=== PATIENT | female | born 1990 | race Caucasian/White ===

== ENCOUNTER 2018-06-15 16:40 | Emergency (ER) | payer BC ==
[2018-06-15 17:06] VITALS: BP 148/78
--- NOTE | 2018-06-15 17:16 | UC ---
- HPI Summary HPI Summary: Pt presents with c/o tender mass/lumps in right upper anterior near axilla. Pt has previous hx of similar c/o that resolved without treatment. Pt LMP was 1 week ago. Pt denies risk of . Denies FMH of breast cancer - History of Current Complaint Breast Chief Complaint: Pain, Right, Palpable Lump Onset/Duration: Started Days Ago, Still Present Timing: Constant Breast Pain Radiates To: Right Breast Pain Aggravating Factors: Palpation Breast Pain Alleviating Factors: Other: - postion Breast Associated Signs/Symptoms: Negative - Allergy/Home Medications Allergies/Adverse Reactions: Allergies Allergy/AdvReac Type Severity Reaction Status Date / Time amoxicillin [From Augmentin] Allergy Rash Verified 06/15/18 17:03 clavulanic acid Allergy Rash Verified 06/15/18 17:02 [From Augmentin] Home Medications: Home Medications Control Pill 1 tab PO DAILY 06/15/18 [History] Ibuprofen TAB* [Advil TAB*] 400 mg PO Q6H PRN 06/15/18 [History Confirmed ] PMH/Surg Hx/FS Hx/Imm Hx Previously Healthy: Yes - Surgical History Surgical History: None - Family History Known Family History: Positive: Cardiac Disease - Social History Occupation: Employed Full-time Lives: With Family Alcohol Use: None Substance Use Type: None Smoking Status (MU): Never Smoked Tobacco Have You Smoked in the Last Year: No - Immunization History Vaccination Up to Date: Yes Review of Systems All Other Systems Reviewed And Are Negative: Yes Constitutional: Positive: Negative Skin: Positive: Negative Eyes: Positive: Negative ENT: Positive: Negative Respiratory: Positive: Negative Cardiovascular: Positive: Negative Gastrointestinal: Positive: Negative Genitourinary: Positive: Negative Motor: Positive: Negative Neurovascular: Positive: Negative Musculoskeletal: Positive: Negative Neurological: Positive: Negative Psychological: Positive: Negative Is Patient Immunocompromised?: No Physical Exam Triage Information Reviewed: Yes Appearance: Well-Appearing Vital Signs: Initial Vital Signs Temp 97.8 F 06/15/18 16:59 Pulse 94 06/15/18 16:59 Resp 16 06/15/18 16:59 BP 148/78 06/15/18 16:59 Pulse Ox 100 06/15/18 16:59 Vital Signs Reviewed: Yes Eye Exam: Normal ENT Exam: Normal Dental Exam: Normal Neck exam: Normal Respiratory Exam: Normal Cardiovascular Exam: Normal Cardiovascular: Positive: Other: - Breast exam. Pt had fibrodense breast. No palpable mass indentified offer than fibrodensity. No axilla masses, no nipple discharge. Musculoskeletal Exam: Normal Neurological Exam: Normal Psychological Exam: Normal Skin Exam: Normal Breast Pain Course/Dx - Differential Diagnoses Differential Diagnosis/HQI/PQRI: Breast Mass, Fibrocystic Breast Disease - Diagnoses Provider Diagnoses: Breast tenderness in female Discharge - Sign-Out/Discharge Documenting (check all that apply): Patient Departure All imaging exams completed and their final reports reviewed: No Studies - Discharge Plan Condition: Stable Disposition: HOME Patient Education Materials: Breast Self Exam for Women (ED) Referrals: Clarisa No [Primary Care Provider] - As Soon As Possible Additional Instructions: Please follow up with your PCP as soon as possible. - Billing Disposition and Condition Condition: STABLE Disposition: Home
== END 2018-06-15 17:26 | disposition home or self-care (01) ==
LOC: UCCORT 16:40
DX: N64.4 Mastodynia (principal); Z88.3 Allergy status to other anti-infective agents
CPT/HCPCS: 99211; G0463